=== PATIENT | female | born 1940 | race Caucasian/White ===

== ENCOUNTER 2017-08-14 12:38 | Inpatient (IN) | payer MEDICARE, MEDICAID ==
[~2017-08-14] VITALS: Ht 170.2 cm; Wt 89.9 kg
[2017-08-14] MEDS ORDERED: METF10004 PO (13:02)
[2017-08-14] MEDS ORDERED: MEMA10TA PO (13:02)
[2017-08-14] MEDS ORDERED: ASPI81TA31 PO (13:02)
[2017-08-14] MEDS ORDERED: VENL150C58 PO (13:02)
[2017-08-14] MEDS ORDERED: LOSA100T15 PO (13:02)
[2017-08-14] MEDS ORDERED: VENL75CA62 PO (13:02)
[2017-08-14] MEDS ORDERED: SIMV10TA6 PO (13:02)
[2017-08-14 13:16] LABS: BASOPHILS # (AUTO) 0.1 K/uL (0.0-8.0); BASOPHILS % (AUTO) 0.7 % (0.0-2.0); EOSINOPHILS # (AUTO) 0.1 K/uL (0.0-0.7); EOSINOPHILS % (AUTO) 1.3 % (0.0-7.0); HEMATOCRIT 42.1 % (31.2-41.9); HEMOGLOBIN 14.3 g/dL (10.9-14.3); LYMPHOCYTES # (AUTO) 2.2 K/uL (20.0-40.0); LYMPHOCYTES % (AUTO) 20.8 % (20.5-51.5); MEAN CORPUSCULAR HEMOGLOBIN 30.3 uug (24.7-32.8); MEAN CORPUSCULAR HGB CONC 34 g/dL (32.3-35.6); MEAN CORPUSCULAR VOLUME 89.5 fL (75.5-95.3); MONOCYTES # (AUTO) 0.6 K/uL (2.0-10.0); MONOCYTES % (AUTO) 5.8 % (0.0-11.0); NEUTROPHILS # (AUTO) 7.4 K/uL (1.8-8.9); NEUTROPHILS % (AUTO) 71.4 % (38.5-71.5); PLATELET COUNT (AUTO) 234 K/uL (179-408); WHITE BLOOD COUNT (AUTO) 10.3 K/uL (3.8-11.8)
[2017-08-14 13:18] LABS: CARBON DIOXIDE 26 mmol/L (21-32); CHLORIDE 102 mmol/L (98-107); CREATININE 0.9 mg/dL (0.6-1.3); GLUCOSE 228 mg/dL (74-106); UREA NITROGEN, BLOOD 13 mg/dL (7-18)
[2017-08-14 13:24] LABS: ALANINE AMINOTRANSFERASE 29 U/L (14-59); ALKALINE PHOSPHATASE 88 U/L (50-136); ASPARTATE AMINOTRANSFERASE 25 U/L (15-37); BILIRUBIN,DIRECT 0.2 mg/dL (0.0-0.2); BILIRUBIN,TOTAL 0.6 mg/dL (0.2-1.0); TOTAL PROTEIN, SERUM 7.6 g/dL (6.4-8.2)
--- NOTE | 2017-08-14 14:01 | NUR ---
Pt to be admitted to tele. Pt property management form completed, pt daughter states she will take all of pt's belongings home and signed the form.
--- NOTE | 2017-08-14 14:50 | NUR ---
Pt trans to tele floor, NAD noted.
--- NOTE | 2017-08-14 15:00 | NUR ---
Pt alert and oriented x 2 reoriented pt to why she is here in the hospital secondary to her Chest Pain. IV on right hand intact. Skin dry and intact. TELE SNR no ectopy noted. Pt ambulatory with good balance but put near nursing station secondary to pt is prone to wondering around. Pt denies any c/o pain. Assisted pt to bathroom - pt urinated clear yellow urine. Bed alarm turned on for fall precaution and prevent pt from wondering. Call light is within reach.
[2017-08-14 15:19] VITALS: BP 146/61
--- NOTE | 2017-08-14 18:30 | NUR ---
Pt is in no acute distress. spoke with daughter VIJAY [id number] DPOA re: code status. Call light is within reach.
[2017-08-14 19:23] VITALS: BP 102/61
--- NOTE | 2017-08-14 20:11 | NUR ---
Received patient awake pleasantly confused, no SOB denies chest pain. Tele monitor shows Sinus rhythm w/ PACs. No IV access, family in room, daughter stated she probably removed her IV line while inside the bathroom. Patient requesting food. Accu check initiated- shows 185 mg/dl. On Diabetic diet, late dinner provided. Awaiting for MD to reconcile home medications. Vital signs WNL. Will continue to monitor.
[2017-08-14] MEDS ORDERED: ACETAMINOPHEN 325 MG TABLET PO PRN (20:45)
[2017-08-14] MEDS ORDERED: MORPHINE SULFATE 2 MG/1 ML DISP.SYRIN IV PRN (20:45)
[2017-08-14] MEDS ORDERED: ONDANSETRON 4 MG/2 ML VIAL IV PRN (20:45)
[2017-08-14] MEDS: BLOOD SUGAR DIAGNOSTIC 1 EACH STRIP VI SCH (20:58)
[2017-08-14] MEDS ORDERED: DEXTROSE 50% 50 ML DISP.SYRIN IV PRN (21:00)
[2017-08-14] MEDS ORDERED: DOCUSATE SODIUM 250 MG CAPSULE PO SCH (21:00)
--- NOTE | 2017-08-14 21:12 | NUR ---
INPATIENT MEDICATIONS WAS RECONCILED BY . AWAITING VERIFICATION FROM PHARMACY.
--- NOTE | 2017-08-14 21:27 | NUR ---
Inserted new IV line on left hand, w/ [id number].
[2017-08-14] MEDS: VENLAFAXINE XR 75 MG CAP.SR.24H PO SCH (21:55)
[2017-08-14] MEDS: SIMVASTATIN 10 MG TABLET PO SCH (21:55)
[2017-08-14] MEDS: INSULIN REGULAR, HUMAN 300 UNIT/3 ML VIAL SQ PRN (22:16)
[2017-08-14] MEDS: TEMAZEPAM 7.5 MG CAPSULE PO PRN (22:18)
[2017-08-14 23:45] VITALS: BP 100/38
--- NOTE | 2017-08-15 03:30 | NUR ---
Patient awake slightly SOB but no chest pain. Checked O2Sat 92% RA. O2 2L/NC applied then paged RT for a breathing treatment. Sinus rhythm on the monitor.
[2017-08-15 03:33] VITALS: BP 121/69
[2017-08-15] MEDS: ALBUTEROL SULFATE 2.5 MG/3 ML NEBU NEB PRN (03:34)
[2017-08-15 04:00] VITALS: BP 121/69
--- NOTE | 2017-08-15 04:30 | NUR ---
Patient asleep, no sign of distress. vVtal signs stable.
[2017-08-15] MEDS: PANTOPRAZOLE SODIUM 40 MG TABLET.DR PO SCH (05:57)
[2017-08-15] MEDS: BLOOD SUGAR DIAGNOSTIC 1 EACH STRIP VI SCH ×4 (06:06→20:17)
[2017-08-15 06:16] LABS: BASOPHILS # (AUTO) 0.1 K/uL (0.0-8.0); BASOPHILS % (AUTO) 0.8 % (0.0-2.0); EOSINOPHILS # (AUTO) 0.2 K/uL (0.0-0.7); HEMATOCRIT 38.2 % (31.2-41.9); HEMOGLOBIN 13.2 g/dL (10.9-14.3); LYMPHOCYTES # (AUTO) 2.2 K/uL (20.0-40.0); MEAN CORPUSCULAR HGB CONC 34 g/dL (32.3-35.6); MEAN CORPUSCULAR VOLUME 90.1 fL (75.5-95.3); MONOCYTES # (AUTO) 0.6 K/uL (2.0-10.0); MONOCYTES % (AUTO) 6.3 % (0.0-11.0); NEUTROPHILS # (AUTO) 6.1 K/uL (1.8-8.9); NEUTROPHILS % (AUTO) 66.9 % (38.5-71.5); PLATELET COUNT (AUTO) 204 K/uL (179-408); RED BLOOD CELL COUNT(AUTO) 4.24 MIL/uL (3.63-4.92); WHITE BLOOD COUNT (AUTO) 9.1 K/uL (3.8-11.8)
[2017-08-15 06:39] LABS: ALANINE AMINOTRANSFERASE 25 U/L (14-59); ALKALINE PHOSPHATASE 79 U/L (50-136); ASPARTATE AMINOTRANSFERASE 23 U/L (15-37); BILIRUBIN,TOTAL 0.4 mg/dL (0.2-1.0); CARBON DIOXIDE 27 mmol/L (21-32); CHLORIDE 106 mmol/L (98-107); CHOLESTEROL 148 mg/dL (<200); GLUCOSE 210 mg/dL (74-106); HDL CHOLESTEROL 39 mg/dL (40-60); MAGNESIUM 1.9 mg/dL (1.8-2.4); PHOSPHOROUS 4.5 mg/dL (2.5-4.9); POTASSIUM 4.1 mmol/L (3.5-5.1); TRIGLYCERIDES 141 MG/DL (30-150); UREA NITROGEN, BLOOD 15 mg/dL (7-18)
--- NOTE | 2017-08-15 07:00 | NUR ---
Remains asleep, no significant change. Vital signs WNL. Tele sinus rhythm.
[2017-08-15] MEDS ORDERED: MORPHINE SULFATE 4 MG/1 ML DISP.SYRIN IV PRN (08:00)
[2017-08-15] MEDS: ASPIRIN 81 MG TAB.CHEW PO SCH (08:43)
[2017-08-15] MEDS: METFORMIN HCL 500 MG TABLET PO SCH ×2 (08:43→17:31)
[2017-08-15] MEDS: VENLAFAXINE XR 150 MG CAP.SR.24H PO SCH (08:43)
[2017-08-15] MEDS: MEMANTINE HCL 10 MG TABLET PO SCH ×2 (08:43→17:31)
[2017-08-15] MEDS: FUROSEMIDE 20 MG/2 ML VIAL IV SCH (08:44)
[2017-08-15] MEDS: INSULIN REGULAR, HUMAN 300 UNIT/3 ML VIAL SQ PRN ×3 (08:46→17:36)
[2017-08-15 11:48] VITALS: BP 109/84
[2017-08-15 15:39] VITALS: BP 149/92
[2017-08-15] MEDS: glipiZIDE 5 MG TABLET PO SCH (17:31)
--- NOTE | 2017-08-15 18:00 | NUR ---
Pt had no episode of sob throughout shift. Pt on r/a with o2 sat 96%. Call light is within reach.
[2017-08-15] MEDS: CARVEDILOL 3.125 MG TABLET PO SCH (18:53)
[2017-08-15 19:23] VITALS: BP 105/81
[2017-08-15] MEDS: SIMVASTATIN 10 MG TABLET PO SCH (20:11)
[2017-08-15] MEDS: VENLAFAXINE XR 75 MG CAP.SR.24H PO SCH (20:11)
[2017-08-15] MEDS: TEMAZEPAM 7.5 MG CAPSULE PO PRN (20:11)
[2017-08-15] MEDS ORDERED: DOCUSATE SODIUM 100 MG CAPSULE PO SCH (21:00)
[2017-08-15 23:33] VITALS: BP 114/63
[2017-08-16 03:46] VITALS: BP 104/62
[2017-08-16] MEDS: ALBUTEROL SULFATE 2.5 MG/3 ML NEBU NEB PRN (04:22)
[2017-08-16 06:18] LABS: CARBON DIOXIDE 27 mmol/L (21-32); CHLORIDE 103 mmol/L (98-107); GLUCOSE 216 mg/dL (74-106); MAGNESIUM 1.7 mg/dL (1.8-2.4); PHOSPHOROUS 4.3 mg/dL (2.5-4.9); UREA NITROGEN, BLOOD 15 mg/dL (7-18)
[2017-08-16 06:20] LABS: BASOPHILS % (AUTO) 0.3 % (0.0-2.0); EOSINOPHILS # (AUTO) 0.2 K/uL (0.0-0.7); EOSINOPHILS % (AUTO) 1.8 % (0.0-7.0); HEMATOCRIT 38.1 % (31.2-41.9); LYMPHOCYTES # (AUTO) 2.1 K/uL (20.0-40.0); LYMPHOCYTES % (AUTO) 20.1 % (20.5-51.5); MEAN CORPUSCULAR HEMOGLOBIN 30.6 uug (24.7-32.8); MEAN CORPUSCULAR HGB CONC 34 g/dL (32.3-35.6); MEAN CORPUSCULAR VOLUME 89.7 fL (75.5-95.3); MONOCYTES # (AUTO) 0.7 K/uL (2.0-10.0); MONOCYTES % (AUTO) 6.4 % (0.0-11.0); NEUTROPHILS # (AUTO) 7.4 K/uL (1.8-8.9); NEUTROPHILS % (AUTO) 71.4 % (38.5-71.5); PLATELET COUNT (AUTO) 208 K/uL (179-408); RED BLOOD CELL COUNT(AUTO) 4.25 MIL/uL (3.63-4.92); WHITE BLOOD COUNT (AUTO) 10.3 K/uL (3.8-11.8)
--- NOTE | 2017-08-16 06:25 | NUR ---
Pt had complained of SOB twice during the night. Although her 02 sat was 97+ on room air, I instructed pt so sit up and take deep breaths. Gave 02 at 2L via NC for comfort. Pt went into a-flutter a few times. However, returned back to sinus rhythm once the SOB subsided. Pt wanting to sleep at this time. I took her BS (214) and pt wants to take her AM meds later so she can sleep a little more now. Will endorse to next shift. Daughter at bedside all night. In bed resting at this time.
[2017-08-16] MEDS: BLOOD SUGAR DIAGNOSTIC 1 EACH STRIP VI SCH ×3 (06:32→16:58)
--- NOTE | 2017-08-16 07:20 | NUR ---
RECEIVED REPORT FROM [employer]ATION AND CONTROL ENGINEER [employer], PATIENT IN BED ASLEEP, NO DISTRESS NOTED AT THIS TIME. BED IN LOW POSITION, SIDE RAILS UP X2, DAUGHTER AT BEDSIDE.
[2017-08-16] MEDS ORDERED: LOSARTAN POTASSIUM 25 MG TABLET PO SCH (09:00)
[2017-08-16] MEDS: PANTOPRAZOLE SODIUM 40 MG TABLET.DR PO SCH (09:03)
[2017-08-16] MEDS: glipiZIDE 5 MG TABLET PO SCH ×2 (09:04→16:43)
[2017-08-16] MEDS: ASPIRIN 81 MG TAB.CHEW PO SCH (09:04)
[2017-08-16] MEDS: CARVEDILOL 3.125 MG TABLET PO SCH (09:04)
[2017-08-16] MEDS: MEMANTINE HCL 10 MG TABLET PO SCH ×2 (09:05→16:42)
[2017-08-16] MEDS: FUROSEMIDE 20 MG/2 ML VIAL IV SCH (09:05)
[2017-08-16] MEDS: VENLAFAXINE XR 150 MG CAP.SR.24H PO SCH (09:05)
[2017-08-16] MEDS: METFORMIN HCL 500 MG TABLET PO SCH (09:09)
[2017-08-16] MEDS: INSULIN REGULAR, HUMAN 300 UNIT/3 ML VIAL SQ PRN ×2 (09:15→13:11)
[2017-08-16 11:26] VITALS: BP 133/70
[2017-08-16] MEDS ORDERED: MAGNESIUM OXIDE 400 MG TABLET PO ONE (11:45)
[2017-08-16] MEDS ORDERED: FUROSEMIDE 20 MG/2 ML VIAL IV ONE (14:30)
[2017-08-16 15:38] VITALS: BP 122/61
[2017-08-16] MEDS ORDERED: CARV3.122 PO (15:56)
[2017-08-16] MEDS ORDERED: SIMV10TA6 PO (15:56)
[2017-08-16] MEDS ORDERED: GLIP5TAB13 PO (15:56)
[2017-08-16] MEDS ORDERED: METF500T6 PO (15:56)
[2017-08-16] MEDS ORDERED: LOSA25TA3 PO (15:56)
--- NOTE | 2017-08-16 16:32 | NUR ---
F/U APPT: COUPLER [facility]LE CONTACTED FOR APPOINTMENT ON July, AT 130PM.
--- NOTE | 2017-08-16 17:50 | NUR ---
PATIENT WAS GIVEN DISCHARGE INSTRUCTIONS, FOLLOWUP APPOINTMENT MADE WITH [employer] AGENT, PHARMACY CONSULT DONE, AND PATIENT HAS BEEN DISCHARGED.
== END 2017-08-16 17:50 | disposition home health service (06) | DRG 293 ==
LOC: ER 12:46 → TELE 14:54
PROVIDERS: ADMIT Internal Medicine; ATTEND Internal Medicine
DX: I11.0 Hypertensive heart disease with heart failure (principal); I50.23 Acute on chronic systolic (congestive) heart failure; I42.9 Cardiomyopathy, unspecified; F03.90 Unspecified dementia, unspecified severity, without behavioral disturbance, psychotic disturbance, mood disturbance, and anxiety; E78.5 Hyperlipidemia, unspecified; R94.6 Abnormal results of thyroid function studies; F32.9 Major depressive disorder, single episode, unspecified; E11.65 Type 2 diabetes mellitus with hyperglycemia; I34.0 Nonrheumatic mitral (valve) insufficiency; M85.80 Other specified disorders of bone density and structure, unspecified site; E66.9 Obesity, unspecified; Z79.899 Other long term (current) drug therapy; Z68.31 Body mass index [BMI] 31.0-31.9, adult; M77.9 Enthesopathy, unspecified; Z79.84 Long term (current) use of oral hypoglycemic drugs; Z87.891 Personal history of nicotine dependence; Z79.82 Long term (current) use of aspirin; E83.42 Hypomagnesemia; E03.9 Hypothyroidism, unspecified
CPT/HCPCS: 36415; 70030-TC; 71045; 83735; 84100; 84443; 85025; 85730; 93005; 93307; 94640; 94664; A4663; J1815; J1940